=== PATIENT | female | born 1990 | race Two or more races ===

== ENCOUNTER → 2021-06-22 | Outpatient (CLI) | payer OTHER ==
[2021-06-22 14:16] LABS: FREE T4 0.84 NG/DL (0.76-1.46); THYROID STIMULATING HORMONE 1.89 uIU/ML (0.358-3.740)
== END ==
LOC: M LAB 12:55
PROVIDERS: ATTEND Internal Medicine Gastroenterology
DX: R19.7 Diarrhea, unspecified (principal)

== ENCOUNTER → 2021-07-18 | Outpatient (CLI) | payer OTHER ==
[~2021-07-18] MED LIST: DULO1CAP6 PO; NORE1TAB51 PO; PREG100C PO; QUET100T2 PO; TAMS1CAP17 PO; TIZA2TA PO
== END ==
LOC: M LABSMTC 09:46
PROVIDERS: ATTEND Anesthesiology
DX: Z01.812 Encounter for preprocedural laboratory examination (principal)

== ENCOUNTER 2021-07-22 10:17 | Day surgery (SDC) | payer OTHER ==
[~2021-07-22] VITALS: Ht 172.7 cm; Wt 98.3 kg
[~2021-07-22 10:17] MED LIST changes: +NS 1,000 ML IV ONE
[2021-07-22] MEDS ORDERED: LIDOCAINE 2% 100MG/5ML SDV (FOR ANES.) As Ordered ONE ×2 (11:51→12:28)
[2021-07-22] MEDS ORDERED: propofoL 200 MG/20 ML VIAL As Ordered ONE ×2 (11:51→12:28)
--- NOTE | 2021-07-22 12:19 | ROOR ---
Patient Name: Marcelina Talley Procedure Date: 07/22/2021 11:55 AM Date of : 1990 Age: 31 Room: [facility] Gender: Female Note Status: Finalized Procedure: Colonoscopy Indications: Change in bowel habits, Chronic diarrhea Providers: Michael Franklin MD Referring MD: 1. NO/Unknown PCP 1. NO/Unknown PCP, Admin., Michael Franklin MD Requesting Provider: Medicines: Monitored Anesthesia Care Complications: No immediate complications. Procedure: Pre-Anesthesia Assessment: - The heart rate, respiratory rate, oxygen saturations, blood pressure, adequacy of pulmonary ventilation, and response to care were monitored throughout the procedure. The Colonoscope was introduced through the anus and advanced to 10 cm into the ileum. The colonoscopy was performed without difficulty. The patient tolerated the procedure well. The quality of the bowel preparation was good. Findings: The perianal and digital rectal examinations were normal. The colon (entire examined portion) appeared normal. The terminal ileum appeared normal. Biopsies for histology were taken with a cold forceps for evaluation of microscopic colitis. Impression: - The entire colon is normal. - The examined portion of the ileum was normal. - Biopsies were taken with a cold forceps for evaluation of microscopic colitis. - (Irritable Bowel Syndrome/IBS suspected.) Recommendation: - Telephone endoscopist for pathology results in 2 weeks. - Continue present medications. Procedure Code(s): --- Professional --- 91719, Colonoscopy, flexible; with biopsy, single or multiple Diagnosis Code(s): --- Professional --- K52.9, Noninfective gastroenteritis and colitis, unspecified R19.4, Change in bowel habit CPT copyright 2019 [employer] [employer]. All rights reserved. The codes documented in this report are preliminary and upon kettle girl review may be revised to meet current compliance requirements. Michael Franklin MD Michael Franklin MD 07/22/2021 12:19:20 PM Electronically signed by Michael Franklin MD Number of Addenda: 0 Note Initiated On: 07/22/2021 11:55 AM Estimated Blood Loss: Estimated blood loss: none.
[2021-07-22 12:46] VITALS: BP 110/73
== END 2021-07-22 12:45 | disposition home or self-care (01) ==
LOC: M OPP 10:17
PROVIDERS: ATTEND Internal Medicine Gastroenterology
DX: R19.4 Change in bowel habit (principal); K52.9 Noninfective gastroenteritis and colitis, unspecified; D12.6 Benign neoplasm of colon, unspecified; M19.90 Unspecified osteoarthritis, unspecified site; F41.9 Anxiety disorder, unspecified; F32.9 Major depressive disorder, single episode, unspecified; F17.210 Nicotine dependence, cigarettes, uncomplicated; Z79.899 Other long term (current) drug therapy; Z83.3 Family history of diabetes mellitus